=== PATIENT | female | born 1990 | race American Indian/Alaskan Native ===

== ENCOUNTER 2017-03-19 17:01 | Outpatient (CLI) | payer OTHER ==
[2017-03-19] MEDS ORDERED: LACTATED RINGERS 500 ML IV ONE (17:10)
[2017-03-19 17:27] VITALS: BP 106/58
[2017-03-19 18:17] LABS: Bilirubin,Urine NEG (Negative); Blood,Urine NEG (Negative); Color,Urine Yellow (Yellow); Mucus,Urine 1+ /HPF; Nitrite,Urine NEG (Negative); Protein,Urine <15 mg/dL mg/dL (Negative)
== END 2017-03-19 18:40 | disposition home or self-care (01) ==
LOC: TRG 17:01
PROVIDERS: ATTEND Obstetrics & Gynecology
DX: O47.02 False labor before 37 completed weeks of gestation, second trimester (principal); Z87.891 Personal history of nicotine dependence; Z3A.23 23 weeks gestation of pregnancy
CPT/HCPCS: 59025; 81001

== ENCOUNTER 2017-05-25 15:48 | Outpatient (CLI) | payer MEDICAID ==
[2017-05-25 16:15] VITALS: BP 105/65
[2017-05-25] MEDS ORDERED: LACTATED RINGERS 500 ML IV ONE (16:16)
[2017-05-25] MEDS ORDERED: NORMOSOL-R PH 7.4 1,000 ML IV ONE ×2 (16:55→17:13)
[2017-05-25 17:03] LABS: Bacteria,Urine 1+ /HPF (Negative); Bilirubin,Urine NEG (Negative); Blood,Urine NEG (Negative); Color,Urine Yellow (Yellow); Mucus,Urine FEW /HPF; Protein,Urine <15 mg/dL mg/dL (Negative); Urobilinogen,Urine < 2.0 mg/dL (<2.0)
[2017-05-25] MEDS ORDERED: TYLENOL PO ONE (17:13)
[2017-05-25] MEDS ORDERED: cefTRIAXone 1 GM in NACL 0.9% 20 ML IV ONE (18:18)
== END 2017-05-25 19:48 | disposition home or self-care (01) ==
LOC: TRG 15:48
PROVIDERS: ATTEND Obstetrics & Gynecology
DX: O47.03 False labor before 37 completed weeks of gestation, third trimester (principal); Z3A.32 32 weeks gestation of pregnancy
CPT/HCPCS: 59025; 81001; 87086; 96360; 96374; J0696

== ENCOUNTER 2017-06-17 17:39 | Outpatient (CLI) | payer MEDICAID ==
[2017-06-17 18:53] LABS: Bacteria,Urine 1+ /HPF (Negative); Mucus,Urine 1+ /HPF
[2017-06-17 18:54] LABS: Bilirubin,Urine NEG (Negative); Blood,Urine NEG (Negative); Color,Urine Yellow (Yellow); Urobilinogen,Urine < 2.0 mg/dL (<2.0)
== END 2017-06-17 19:22 | disposition home or self-care (01) ==
LOC: TRG 17:39
PROVIDERS: ATTEND Obstetrics & Gynecology
DX: O47.03 False labor before 37 completed weeks of gestation, third trimester (principal); Z3A.36 36 weeks gestation of pregnancy
CPT/HCPCS: 81001

== ENCOUNTER 2017-06-30 13:51 | Outpatient (CLI) | payer MEDICAID | END 2017-06-30 15:07 | disposition home or self-care (01) | LOC: TRG 13:51 | PROVIDERS: ATTEND Obstetrics & Gynecology | DX: O47.1 False labor at or after 37 completed weeks of gestation (principal); Z3A.37 37 weeks gestation of pregnancy ==

== ENCOUNTER 2017-07-01 06:41 | Outpatient (CLI) | payer MEDICAID ==
[2017-07-01] MEDS ORDERED: LACTATED RINGERS 1,000 ML IV ONE (09:30)
[2017-07-01] MEDS ORDERED: VISTARIL PO NR (09:32)
== END 2017-07-01 11:20 | disposition home or self-care (01) ==
LOC: TRG 06:41
PROVIDERS: ATTEND Obstetrics & Gynecology
DX: O62.9 Abnormality of forces of labor, unspecified (principal); Z3A.37 37 weeks gestation of pregnancy
CPT/HCPCS: 59025; 96360; J7120; Q0177